=== PATIENT | male | born 1970 | race Caucasian/White ===

== ENCOUNTER 2016-08-31 10:47 | Outpatient (RCR) | payer MEDICARE, OTHER ==
[~2016-08-31] VITALS: Ht 172.7 cm; Wt 74.4 kg
[2016-09-02] MEDS ORDERED: Kenalog-40 1ml Vial IARTIC ONE (16:30)
== END 2016-09-15 | disposition home or self-care (01) ==
LOC: WCC 10:47
DX: L89.321 Pressure ulcer of left buttock, stage 1 (principal); G80.9 Cerebral palsy, unspecified; Z88.6 Allergy status to analgesic agent; I10 Essential (primary) hypertension
CPT/HCPCS: G0463; J3301

== ENCOUNTER 2016-10-05 10:26 | Outpatient (RCR) | payer MEDICARE, OTHER ==
[~2016-10-05] VITALS: Ht 172.7 cm; Wt 74.4 kg
[2016-10-05] MEDS ORDERED: Kenalog-10 5ml Inj ONE (10:27)
[2016-10-07] MEDS ORDERED: Kenalog-10 5ml Inj IARTIC ONE (12:30)
== END 2016-10-16 | disposition home or self-care (01) ==
LOC: WCC 10:26
DX: L89.321 Pressure ulcer of left buttock, stage 1 (principal); G80.9 Cerebral palsy, unspecified; Z88.6 Allergy status to analgesic agent; Z88.8 Allergy status to other drugs, medicaments and biological substances; I10 Essential (primary) hypertension; K21.9 Gastro-esophageal reflux disease without esophagitis
CPT/HCPCS: G0463; J3301